=== PATIENT | female | born 1975 | race Caucasian/White ===

== ENCOUNTER 2019-07-18 08:41 | Emergency (ER) | payer OTHER, SELFPAY ==
--- NOTE | ~2019-07-18 | XR_ITS ---
EXAMINATION: XR chest 2V DATE: 07/18/2019 09:35 INDICATION: Cough and fever TECHNIQUE: PA and lateral views of the chest are obtained. COMPARISON: None available FINDINGS: The lungs are free of acute opacities. There is no pleural effusion or pneumothorax. The ca rdiomediastinal silhouette is normal. The visualized bones and soft tissues are unremarkable. IMPRESSION: 1. No acute cardiopulmonary abnormality. Reviewed, dictated and finalized at location A. R[employer]' COORDINATOR
[2019-07-18 08:50] VITALS: BP 153/118; PULSE 114; RESP 24; TEMP 37.5; O2SAT 100
--- NOTE | 2019-07-18 08:58 | ED.GENADULT ---
HPI - General Adult General Chief complaint: Shortness of Breath/Dyspnea Stated complaint: DIF BREATHING Time Seen by Provider: 07/18/19 08:52 Source: patient and RN notes reviewed Mode of arrival: ambulatory Limitations: no limitations History of Present Illness HPI narrative: Pt is a 43 y/o female who presents to the ED with c/o a 7/10 productive cough which began 3 days ago. Pt states she was diagnosed with a sinus infection in April 2019 and was prescribed Ciprofloxacin for 3 weeks by her physician. She reports this alleviated her sinus infection. However, she reports her family were all experiencing cold symptoms recently, so she has also started to experience them too. Pt reports sinus congestion, rhinorrhea, a fever, SOB, and vomiting, which began 1.5 weeks ago. Pt reports she has a PMHx of blood clots during her , which she was prescribed Coumadin for. complaint: Cough Onset (ago): day(s) (3 days ago) Radiation: non-radiation Severity: moderate Severity scale (1-10): 7 Pain Consistency: constant Relieving factors: none Exacerbating factors: none Associated symptoms: fever/chills (fever), nausea/vomiting (vomiting), shortness of breath and other (sinus congestion; rhinorrhea) Related Data Home Medications Medication Instructions Recorded Confirmed Adult Low Dose Aspirin 07/18/19 Allergies Allergy/AdvReac Type Severity Reaction Status Date / Time morphine Allergy Unknown Verified 07/18/19 09:02 Sulfa (Sulfonamide Allergy Unknown Verified 07/18/19 09:02 Antibiotics) Review of Systems Review of Systems: All systems reviewed & are unremarkable except as noted in HPI and below Constitutional: Constitutional: Reports fever(s) ENT: Reports nasal discharge (rhinorrhea) and Reports other (sinus congestion) Respiratory: Respiratory: Reports cough (productive) and Reports dyspnea Gastrointestinal: Gastrointestinal: Reports vomiting PMFSH Past Medical History Medical History (Updated 07/18/19 @ 10:08 by Lizbeth Ramirez MD) Ovarian cyst Surgical History Surgical History (Updated 07/18/19 @ 09:18 by Key Cerda) H/O: hysterectomy Social History Social History (Updated 07/18/19 @ 09:18 by Key Cerda) Smoking status: Smoker, status unknown Gender identity (if verbalized by the patient): Female Exam Const: General: alert Orientation/consciousness: patient oriented x3 Other: paient coughing constant and crying HENMT: Head: normocephalic and atraumatic Ears: hearing grossly normal bilaterally and external ears normal General nose exam: Other nasal findings present (nose is red) Mouth: Yes Normal oral and palatal mucosa present and Yes lip normal Eyes: Conjunctivae: conjunctivae normal Pupils: Equal, round and reactive pupils present Chest: Chest palpation & inspection: normal inspection of the chest Resp: Effort & Inspection: normal respiratory effort and no retractions Auscultation: clear to auscultation bilaterally and no wheezes Cardio: Rate: tachycardic Rhythm: regular rhythm Heart sounds: no murmurs GI: GI Palp: Yes Soft to palpation, No Tenderness to palpation present (GI), No Guarding due to palpation present (GI) and No Rebound tenderness present Skin: General skin exam: normal color Rashes: no rashes Neuro: General: patient oriented x3, moves all extremities and no meningeal signs Extrem: General: no pedal edema and no edema Psych: Mental Status: mental status grossly normal Affect: normal affect Course Reevaluation(s) Reevaluation #1: Patient was found to be positive for influenza. I Discussed that I Would prescribe Tamiflu and she has declined. Patient is currently receiving IVF and I have ordered cough medication in ER. Patient is now stating that she just wants to go home. I Discussed that she needs IVF and she states she just wants to go home. I also offered her a breathing treatment and she states I just want to go home .
[2019-07-18 09:03] VITALS: O2SAT 99
[2019-07-18] MEDS: SODIUM CHLORIDE 0.9% IV 1,000 ML 999 ML IV CONT (09:08)
[2019-07-18 09:23] LABS: Basophils Absolute Auto 0.1 K/mm3 (0.0-0.1); Basophils Percent Auto 0.9 % (0.2-1.2); Eosinophils Absolute Auto 0.2 K/mm3 (0-0.3); Eosinophils Percent Auto 2.4 % (0-4.4); Hematocrit 43.2 % (37.0-47.0); Hemoglobin 13.9 g/dL (12.0-15.0); Immature Granulocyte Absolute 0.03 K/mm3 (0.00-0.031); Immature Granulocyte Percent A 0.5 % (0-0.5); Lymphocytes Absolute Auto 0.61 K/mm3 (0.9-3.2); Lymphocytes Percent Auto 9.7 % (18.3-44.2); Mean Corpuscular HGB Conc 32.2 g/dl (32-36); Mean Corpuscular Hemoglobin 30.2 pg (26-34); Mean Corpuscular Volume 93.7 fl (80-100); Mean Platelet Volume 9.9 fl (7.4-10.4); Neutrophils Absolute Auto 4.5 K/mm3 (1.3-6.7); Neutrophils Percent Auto 71.5 % (45.5-73.1); Platelet Count Result 265 k/mm3 (150-375); Red Blood Count 4.61 M/mm3 (4.2-5.4); Red Cell Distribution Width 12.4 % (11.5-14.5); White Blood Count 6.3 K/mm3 (4.5-10.0)
--- NOTE | 2019-07-18 09:24 | ECG_ITS ---
Measurements Intervals [place] Rate: 120 P: 82 NC: 143 QRS: 71 QRSD: 89 T: -38 QT: 327 QTc: 464 Interpretive Statements SINUS TACHYCARDIA NONSPECIFIC ST & T-WAVE ABNORMALITY- DIFFUSE LEADS BASELINE WANDER- I, AVL ABNORMAL ECG Electronically Signed On 07-18-2019 10:33:56 [employer] by Chris Rossa D.O.
[2019-07-18 09:33] LABS: Alanine Aminotransferase 87 U/L (4-35); Albumin Level 4.6 g/dL (3.5-5.1); Alkaline Phosphatase 82 U/L (38-126); Aspartate Amino Transferase 101 U/L (14-36); Bilirubin,Total 0.3 mg/dL (0.2-1.3); Blood Urea Nitrogen 7 mg/dL (7-17); Calcium 9.5 mg/dL (8.4-10.2); Carbon Dioxide 22 mmol/L (22-30); Chloride 100 mmol/L (98-107); Estimated Glomerular Filt Rate > 60; Glucose 107 mg/dL (65-105); Potassium 3.8 mmol/L (3.4-5.0); Sodium 140 mmol/L (137-145)
[2019-07-18 09:35] LABS: INR 0.9; Partial Thromboplastin Time 26.8 SECONDS (22.3-36.8)
[2019-07-18 09:45] LABS: Troponin I < 0.012 ng/mL (0.000-0.034)
[2019-07-18] MEDS: ONDANSETRON INJ 4 MG/2 ML VIAL IV PUSH (09:49)
--- NOTE | 2019-07-18 10:05 | PC.NURSE ---
Pt. stated I just wanted to make sure I didn't have pneumonia or a pulmonary embolism. Since I just have the flu I want to go home EDP notified and EDP ok with discharge.
[2019-07-18 10:16] VITALS: BP 131/84; PULSE 103; RESP 19; O2SAT 99
[2019-07-18 12:18] LABS: Reflex Lactic Acid Yes or No Add Lactic
== END 2019-07-18 10:16 | disposition home or self-care (01) ==
PROVIDERS: Emergency Provider General Practice
DX: R05 Cough (principal); J10.1 Influenza due to other identified influenza virus with other respiratory manifestations; R00.0 Tachycardia, unspecified; R94.31 Abnormal electrocardiogram [ECG] [EKG]
CPT/HCPCS: 36415; 71046; 80053; 83605; 84484; 85025; 85610; 85730; 87804; 93005; 96361; 96374; 99284; J2405; J7030

== ENCOUNTER 2024-01-30 12:25 | Outpatient (CLI) | payer OTHER, SELFPAY ==
--- NOTE | ~2024-01-30 | MM_ITS ---
EXAMINATION: MM screening liana BI w jelani HISTORY: Screening mammogram TECHNIQUE: Craniocaudal and mediolateral oblique 3-D tomosynthesis images were obtained and synthetic 2-D images were generated. CAD analysis was submitted and interpreted. COMPARISON: No prior mammogram is available for comparison at this institution. BREAST PARENCHYMAL COMPOSITION:Not Dense. There are scattered areas of fibroglandular density. FINDINGS: No suspicious mass, calcification, or architectural distortion are identified in either ambar ast to suggest malignancy. There has been no suspicious interval change. IMPRESSION: No mammographic evidence of malignancy. Recommend routine screening mammography in one year. BI-RADS Category 1: Negative Reviewed, dictated and finalized at location .
== END 2024-01-30 12:26 | disposition home or self-care (01) ==
LOC: MICIMG 12:26
PROVIDERS: PCP Nurse Practitioner Family; Visit Provider Nurse Practitioner Family
DX: Z12.31 Encounter for screening mammogram for malignant neoplasm of breast (principal)
CPT/HCPCS: 77063; 77067